=== PATIENT | female | born 1945 | race Caucasian/White ===

== ENCOUNTER 2020-09-23 09:01 | Emergency (ER) | payer MEDICARE, OTHER ==
[2020-09-23 10:46] LABS: HEMOGLOBIN 8.4 gm/dl (12.3-15.3); RED BLOOD COUNT 2.64 M/UL (4.00-5.10)
[2020-09-23 11:24] LABS: BUN/CREATININE RATIO 32 (0-10)
== END 2020-09-23 12:32 | disposition short-term general hospital (02) ==
LOC: ER1 09:01
PROVIDERS: Emergency Medicine
DX: S06.6X0A Traumatic subarachnoid hemorrhage without loss of consciousness, initial encounter (principal); S06.5X0A Traumatic subdural hemorrhage without loss of consciousness, initial encounter; I10 Essential (primary) hypertension; I48.91 Unspecified atrial fibrillation; R17 Unspecified jaundice; D64.9 Anemia, unspecified; D69.6 Thrombocytopenia, unspecified; F17.200 Nicotine dependence, unspecified, uncomplicated; Z79.82 Long term (current) use of aspirin; Z91.81 History of falling; Z88.0 Allergy status to penicillin; Z79.899 Other long term (current) drug therapy; W19.XXXA Unspecified fall, initial encounter
CPT/HCPCS: 36415; 36430; 70450; 71045; 80053; 82550; 82553; 83605; 83690; 83874; 84484; 85025; 85610; 85730; 86900; 86901; 93005; 96374; 99285; J0696; P9035